=== PATIENT | male | born 1960 | race Caucasian/White ===

== ENCOUNTER → 2017-08-14 | Outpatient (CLI) | payer OTHER ==
--- NOTE | 2017-08-14 13:04 | Diagnostic Imaging Report ---
PROCEDURE:US RETROPERITONEAL ( KIDNEY ). COMPARISON:None. INDICATIONS:HYDRONEPHROSIS TECHNIQUE: [place]-scale and color sonographic images of the bilateral kidneys and bladder where obtained in transverse and longitudinal planes. FINDINGS: RIGHT KIDNEY: 11.4 cm, cortex 1.1 cm Cysts: 2.7 x 2.0 x 2.0 cm anechoic, cystic lesion in the superior pole, which contains a concentric peripherally located punctate hyperechoic focus, which may represent small calcification. 2.0 x 1.3 x 1.5 cm hypoechoic, oval shaped lesion in the renal sinus at the mid to inferior aspect. No internal vascularity. Solid masses: None Stones: None Hydronephrosis: None Echogenicity: Normal LEFT KIDNEY: 11.5 cm, cortex 1.5 cm Cysts: 2.7 x 2.2 x 2.0 cm oval shaped hypoechoic lesion in the mid aspect, with internal echoes. No vascularity. Solid masses: None Stones: None Hydronephrosis: No Echogenicity: Normal Bladder: No focal lesions. Bilateral ureteral jets identified. Prostate: 4.2 x 2.8 x 5.7 cm (estimated volume 34.6 CC). CONCLUSION: 1. Normal bilateral renal size, and echogenicity. No definite hydronephrosis is identified. No stones. 2. Bilateral hypoechoic oval-shaped lesions in the renal sinuses, which are indeterminate. These may represent focally dilated calyxes with debris or complicated parapelvic cysts. Recommend CT urogram for further evaluation. 3. 2.7 cm anechoic lesion in the superior pole likely represents a cyst with punctate wall calcification. Paulino Naranjo M.D. Dictated by: Paulino Naranjo M.D. on 08/14/2017 at 13:06 Electronically approved by: Paulino Naranjo M.D. on 08/14/2017 at 13:06
== END ==
LOC: US 07:36
PROVIDERS: ATTEND Family Medicine
DX: N13.30 Unspecified hydronephrosis (principal)
CPT/HCPCS: 76770